=== PATIENT | female | born 1965 | race Caucasian/White ===

== ENCOUNTER 2019-07-02 16:05 | Emergency (ER) | payer SELFPAY ==
[~2019-07-02] VITALS: Ht 170.2 cm; Wt 85.9 kg
[2019-07-02 16:35] VITALS: BP 170/108; Ht 170.2 cm; Wt 85.9 kg
== END 2019-07-02 17:32 | disposition left against medical advice (07) ==
LOC: D.ER 16:05
DX: R20.2 Paresthesia of skin (principal)